=== PATIENT | male | born 1930 | race Caucasian/White ===

== ENCOUNTER 2018-04-14 18:45 | Inpatient (IN) | payer MEDICARE ==
[2018-04-14] MEDS ORDERED: Ondansetron PF 4 MG/2 ML Vial ONE (19:36)
--- NOTE | 2018-04-14 20:38 | CT ---
CT THORACIC SPINE 04/14/18 PROVIDED CLINICAL HISTORY: Back pain status post injury. FINDINGS: Advanced multilevel thoracic degenerative changes are seen. There is no evidence for fracture or trau matic subluxation. IMPRESSION: No evidence for fracture or traumatic subluxation. POS: [facility]
--- NOTE | 2018-04-14 20:42 | CT ---
CT BRAIN 04/14/18 PROVIDED CLINICAL HISTORY: Fall with head injury. FINDINGS: The ventricular system appears normal in size and morphology. There is no evidence for intracranial h emorrhage or mass effect. Left frontal scalp hematoma without evidence for fracture. IMPRESSION: No evidence for intracranial hemorrhage or skull fracture. POS: [facility]
[2018-04-14] MEDS ORDERED: Morphine 4 MG/ML VIAL ONE (20:46)
[2018-04-14 20:54] LABS: #Basophils 0.1 thou/uL (0.0-0.2); #Eosinphils 0.2 thou/uL (0.0-0.7); #Lymphocytes 1.5 thou/uL (1.20-3.40); #Neutrophils 13.1 thou/uL (1.40-6.50); %Basophils 0.5 % (0.0-1.0); %Lymphocytes 9.5 % (21.0-51.0); %Monocytes 6.1 % (0.0-10.0); Hemoglobin 12.5 g/dL (14.0-18.0); Mean Corpuscular HGB CONC 32.9 g/dL (32.0-36.0); Mean Corpuscular Hemoglobin 28.6 pg (27.0-31.0); Mean Corpuscular Volume 86.8 fL (78.0-98.0); Mean Platelet Volume 6.6 fL (7.4-10.4); Platelet Count 286 thou/uL (130-400); RBC Distribution Width 12.4 % (11.5-14.5); Red Blood Cell (RBC) Count 4.39 mill/uL (4.70-6.10); White Blood Cell (WBC) Count 15.8 thou/uL (4.8-10.8)
[2018-04-14 21:05] LABS: PTT 29.8 SEC (22.9-36.1); Prothrombin Time 12.9 SEC (12.0-14.7)
--- NOTE | 2018-04-14 21:19 | CT ---
CT CERVICAL SPINE 04/14/18 PROVIDED CLINICAL HISTORY: Cervical pain status post injury. 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 There is associated fracture thr ough the disc space at C5-6. Nondisplaced spinous process fractures are seen at C4, C5 and C6. Promin ent degenerative changes are seen at C3-4 with associated retrolisthesis of C3 on C4 and severe chron ic central canal stenosis. Additional multilevel cervical degenerative changes are seen. Vascular erick cifications are noted. IMPRESSION: Cervical spine fractures as described above. Findings communicated with Dr. Eduardo in the Emergency Department 8:10 p.m., 04/14/18. Code CR POS: [facility]
[2018-04-14 21:28] LABS: ALT (SGPT) 18 U/L (8-55); AST (SGOT) 30 U/L (5-34); Albumin 4.1 g/dL (3.4-4.8); Alkaline Phosphatase 71 U/L (40-150); Anion Gap 17 mmol/L (10-20); BUN (Urea Nitrogen) 21 mg/dL (8.4-25.7); Bilirubin, Total 0.4 mg/dL (0.2-1.2); Calc. Creatinine Clearance 0 mL/min (70-130); Calcium 9.3 mg/dL (7.8-10.44); Carbon Dioxide 22 mmol/L (23-31); Chloride 105 mmol/L (98-107); Estimated GFR-MDRD 43; Globulin 2.3 g/dL (2.4-3.5); Glucose 122 mg/dL (83-110); Potassium 4.1 mmol/L (3.5-5.1); Protein, Total 6.4 g/dL (5.8-8.1); Sodium 140 mmol/L (136-145)
[2018-04-14] MEDS ORDERED: Acetaminophen 1,000 MG in Premix Bag 1 BAG IVPB ONE (21:45)
[2018-04-14] MEDS ORDERED: Dextrose 50% Abboject 50 ML SYRINGE SLOW IVP PRN (22:06)
[2018-04-14] MEDS ORDERED: Ondansetron ODT 4 MG TAB PO PRN (22:06)
[2018-04-14] MEDS ORDERED: Dextrose 5% in Water 1,000 ML IV PRN (22:06)
[2018-04-14] MEDS ORDERED: Morphine 4 MG/ML VIAL SLOW IVP PRN (22:06)
[2018-04-14] MEDS ORDERED: traMADol HCl 50 MG TAB PO PRN (22:06)
[2018-04-14] MEDS ORDERED: Ondansetron PF 4 MG/2 ML Vial IVP PRN (22:06)
[2018-04-14] MEDS ORDERED: Cyclobenzaprine 10 MG TAB PO PRN (22:06)
[2018-04-14] MEDS ORDERED: Acetaminophen 1,000 MG in Premix Bag 1 BAG IVPB SCH (22:15)
[2018-04-14] MEDS ORDERED: Gabapentin 300 MG CAP PO SCH (22:15)
[2018-04-14] MEDS ORDERED: Famotidine 20 MG TAB PO SCH (22:15)
--- NOTE | 2018-04-14 22:49 | HP ---
REQUESTING PHYSICIAN: Dr. Elizalde. ATTENDING SURGEON: Dr. Gaona. CONSULTATION: Neurosurgery, Dr. Terrell. HISTORY OF PRESENT ILLNESS: The patient is an 88-year-old man who was walking on his porch when he missed a step, tripped and fell, hitting his face on the door frame and hyperextending his neck. The patient had immediate neck pain and burning sensation down both upper extremities, right greater than left. He was brought to the emergency department by ground EMS, where he underwent evaluation and examination and was noted to have multiple cervical spine vertebrae fractures and spinous process fractures, at which time, we were asked to admit the patient for neurosurgical consultation, possible MRI in the morning versus surgical intervention yet to be determined. The patient denied any loss of consciousness. He denies any syncopal symptoms before or after his fall. ALLERGIES: NONE. CURRENT MEDICATIONS: 1. Aspirin. 2. Plavix. 3. Keflex. 4. Mirtazapine. 5. Crestor. PAST MEDICAL HISTORY: Prostate cancer, history of repeated staphylococcal infections and the patient reports being on "lifetime Keflex." Coronary artery disease. PAST SURGICAL HISTORY: Cardiac stent and renal stents. SOCIAL HISTORY: The patient lives independently at home with his spouse. He denies drug, tobacco, or alcohol use. FAMILY MEDICAL HISTORY: High blood pressure. REVIEW OF SYSTEMS: Ten-point review of systems is negative as otherwise stated. PHYSICAL EXAMINATION: VITAL SIGNS: Blood pressure 141/87, heart rate 62, respirations 16, oxygen saturation 95% on room air, and temperature is 98.2. GENERAL: The patient is resting comfortably in bed. He is awake, alert, and oriented x3. [place] Coma Scale is 15. HEENT: The patient has contusion to his forehead and left cheek. Eyes, extraocular motion intact. PERRLA bilaterally. Ears are atraumatic without discharge. Nose, atraumatic without discharge. Oropharynx is clear. NECK: Immobilized in a prehospital collar which will be switched to an [place] collar. His trachea is midline. No JVD. CHEST: Clear to auscultation with good inspiratory and expiratory effort. HEART: Regular rate and rhythm. ABDOMEN: Soft, nontender with active bowel sounds. PELVIS: Stable. EXTREMITIES: Neurovascularly intact x4. The patient has equal motocross racer strength in upper extremities, but reports burning sensation right greater than left and more radial on both extremities. BACK: By report is nontender and atraumatic. LABORATORY FINDINGS: White blood cell count 15.8, hemoglobin 12.5, hematocrit 38.1, and platelets 286. Sodium 140, potassium 4.1, chloride 105, CO2 of 22, BUN 21, creatinine 1.52, and glucose 122. PT 12.9, PTT 30, and INR 1.0. RADIOGRAPHIC DATA: CT of the brain without contrast shows no evidence of intracranial hemorrhage or skull fracture. 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 There is associated fracture through the disk space at C5-CC6, nondisplaced spinous process fractures are seen at C4, C5, and C6. There is severe central canal stenosis at C3 and C4 and additional multilevel degenerative changes are seen. CT of the thoracic spine without contrast shows no evidence of fracture or traumatic subluxation. ASSESSMENT AND PLAN: 1. Status post ground-level fall. 2. C5-C6 fracture. 3. Multiple spinous process fractures of C-spine. 4. Chronic kidney disease. 5. History of coronary artery disease, on Plavix and aspirin. PLAN: Plan will be to admit the patient to the surgical floor. The current neurosurgical plan has not been finalized, we will wait Dr. Terrell's input. Precautionarily, we will make him n.p.o. after midnight. He will have pain control, pulmonary toilet, gastritis, and mechanical VTE prophylaxis. The evaluation, examination, laboratory, and radiographic findings will be discussed with Dr. Gaona after this dictation. Job ID: [id number]
[2018-04-14] MEDS ORDERED: Senokot 8.6 MG TAB PO PRN (23:26)
[2018-04-14] MEDS ORDERED: Mirtazapine 15 MG TAB PO SCH (23:30)
[2018-04-14] MEDS ORDERED: Rosuvastatin 10 MG TAB PO SCH (23:30)
[2018-04-14] MEDS ORDERED: Cephalexin 250 MG CAP PO SCH (23:30)
[2018-04-14] MEDS: Sodium Chloride 0.9% 1,000 ML IV SCH (23:36)
[2018-04-14] MEDS ORDERED: Acetaminophen 325 MG TAB PO SCH (23:59)
[2018-04-15 01:59] VITALS: BMI 21.9
[2018-04-15 02:22] LABS: #Basophils 0.1 thou/uL (0.0-0.2); #Eosinphils 0.1 thou/uL (0.0-0.7); #Lymphocytes 1.7 thou/uL (1.20-3.40); #Neutrophils 8.4 thou/uL (1.40-6.50); %Basophils 0.5 % (0.0-1.0); %Eosinophils 0.6 % (0.0-10.0); %Lymphocytes 15.2 % (21.0-51.0); %Monocytes 8.7 % (0.0-10.0); %Neutrophils 75.1 % (42.0-75.0); Hemoglobin 11.7 g/dL (14.0-18.0); Mean Corpuscular HGB CONC 33.8 g/dL (32.0-36.0); Mean Corpuscular Hemoglobin 29.2 pg (27.0-31.0); Mean Corpuscular Volume 86.5 fL (78.0-98.0); Mean Platelet Volume 6.6 fL (7.4-10.4); Platelet Count 244 thou/uL (130-400); RBC Distribution Width 12.3 % (11.5-14.5); Red Blood Cell (RBC) Count 4.01 mill/uL (4.70-6.10); White Blood Cell (WBC) Count 11.1 thou/uL (4.8-10.8)
[2018-04-15 03:07] LABS: Anion Gap 13 mmol/L (10-20); BUN (Urea Nitrogen) 22 mg/dL (8.4-25.7); Calc. Creatinine Clearance 25 mL/min (70-130); Calcium 8.9 mg/dL (7.8-10.44); Carbon Dioxide 25 mmol/L (23-31); Chloride 104 mmol/L (98-107); Estimated GFR-MDRD 39; Glucose 151 mg/dL (83-110); Magnesium 2.2 mg/dL (1.6-2.6); Phosphorus 3.9 mg/dL (2.3-4.7); Potassium 4.7 mmol/L (3.5-5.1); Sodium 137 mmol/L (136-145); Troponin I 0.038 ng/mL (< 0.028)
[2018-04-15 03:12] LABS: CKMB 11.6 ng/mL (0-6.6)
--- NOTE | 2018-04-15 03:18 | HP ---
NEUROSURGICAL HISTORY AND PHYSICAL HISTORY OF PRESENT ILLNESS: Mr. Altamirano is an 88-year-old male who reports that this evening he was walking on his porch and tripped over a piece of a plank that was sticking out. He fell forward hitting his head on the doorjamb and snapping his neck back. The patient denies any loss of consciousness. He reports neck pain posteriorly, pain between his shoulder blades, and pain in both of his hands, specifically his thumb and pointer finger. The patient denies any numbness or tingling. He is moving all 4 extremities well and has good strength. REVIEW OF SYSTEMS: A 10-point review of systems has been completed and is negative other than stated in the above HPI. CURRENT MEDICATIONS: 1. Aspirin 81 mg. 2. Clopidogrel 75 mg. 3. Cephalexin 500 mg. 4. Mirtazapine 7.5 mg. 5. Crestor 10 mg. ALLERGIES: NO KNOWN DRUG ALLERGIES. PAST MEDICAL HISTORY: Prostate cancer, stents. PAST SURGICAL HISTORY: Cardiac stents, renal stents. SOCIAL HISTORY: The patient states that he drinks socially. Denies drug use or smoking. Lives with his . PHYSICAL EXAMINATION: VITAL SIGNS: Heart rate 65, temperature 98.2, oxygen 95% on room air. CONSTITUTION: The patient is alert and oriented to person, place, and time. He is resting in the ER room with a C-collar on. He does not appear to be in any visible distress at this time. HEENT: Head is normocephalic. He has a small hematoma on the left forehead as well as an abrasion/skin laceration on his left cheek and some erythema above the left eye. Pupils are equal, round, and reactive to light. Extraocular movements are intact. Hearing is intact. Moist mucous membranes. NECK: Posterior neck pain along the 5th spinous process, approximately C4, C5, and C6, nontender in upper thoracic spine. RESPIRATIONS: Normal work of breathing on room air. CARDIOVASCULAR: Regular rate and rhythm. EXTREMITIES: The patient is moving all 4 extremities well. 5/5 strength in deltoids, biceps, triceps, pull through hooker strength, hip flexion, knee flexion, knee extension, dorsiflexion, plantar flexion. NEUROLOGIC: The patient is awake, alert, and oriented x3. Normal attention. Normal fund of knowledge. Speech is spontaneous and fluent. Short and long- term memory are intact. Cranial nerves 2 through 12 are intact. No motor or sensory deficits noted. IMAGING: CT of cervical spine shows a fracture between the C5-C6 vertebra where the patient's C-spine has been auto fused. There is a fracture of the C4, C5, and C6 spinous processes, nondisplaced. ASSESSMENT AND PLAN: Mr. Altamirano has cervical spinous process fractures as well as cervical body fractures. We will advise that he wear an [place] C-collar at all times and he will need a [place] collar for showers. At this time, he is neurologically stable and the fractures do not appear to be unstable. Pt. should wear Collar at all times and follow up with our office on an out pt. bases. Job ID: [id number] [facility]
[2018-04-15] MEDS: Acetaminophen 325 MG TAB PO SCH ×4 (06:03→23:59)
[2018-04-15] MEDS: traMADol HCl 50 MG TAB PO PRN ×2 (07:15→19:23)
[2018-04-15] MEDS: Calcium Carbonate + Vit D 1 TAB PO SCH (08:15)
[2018-04-15] MEDS: Gabapentin 100 MG CAP PO SCH ×2 (08:16→21:05)
[2018-04-15] MEDS: Cephalexin 250 MG CAP PO SCH ×4 (08:16→21:05)
--- NOTE | 2018-04-15 08:18 | RAD ---
SINGLE VIEW OF THE CHEST: COMPARISON: None. HISTORY: Bradycardia and hypotension. FINDINGS: A single view of the chest shows a normal-size cardiomediastinal silhouette with atherosclerotic calc ifications in the aorta. There is no evidence of consolidation, mass, or pleural effusion. Degenera tive change are seen in the spine. IMPRESSION: No evidence of acute cardiopulmonary disease. POS: [facility]
[2018-04-15] MEDS ORDERED: Gabapentin 300 MG CAP PO SCH (09:00)
[2018-04-15] MEDS ORDERED: Famotidine 20 MG TAB PO SCH (09:00)
[2018-04-15 09:28] LABS: Cardiac Risk 2.3 (Less than 4.5)
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
[2018-04-15] MEDS: Sodium Chloride 0.9% 1,000 ML IV SCH (11:34)
--- NOTE | 2018-04-15 12:45 | PRG ---
DATE OF SERVICE: 04/15/2018 SUBJECTIVE: The patient is on hospital day #2. He is currently on the IMCU. Last night, he had an episode of significant bradycardia. He never had loss of consciousness, chest pain, shortness of breath, but it was noted that his heart rate dropped as low as to 30s and stayed there for a significant amount of time again not becoming symptomatic, but he was moved from the surgical floor to the IMCU this morning. He underwent echocardiogram and is awaiting Cardiology consult for likely pacemaker placement. His EKG last night at the time of his event showed significant sinus arrhythmia, but had a known first-degree heart block, but no second or third degree heart block was noted. Otherwise, the patient is doing well. He has been fitted with a [place] J collar for his cervical fracture and it will be treated nonoperatively per Dr. Terrell. PHYSICAL EXAMINATION: VITAL SIGNS: Temperature is 99.0, heart rate 43, blood pressure 105/38, respirations 16, oxygen saturation is 100% on room air. GENERAL: The patient is resting comfortably in bed. He is awake, alert, conversant, and appropriate. It is noted that when the patient does fall asleep, his heart rate will slow down into the 30s, but while conversing, he stays around a heart rate of 50 to 60. HEENT: Unremarkable. The patient is wearing a [place] J collar. LUNGS: Clear to auscultation with good inspiratory and expiratory effort. HEART: Regular and bradycardic. ABDOMEN: Soft, flat, nontender with active bowel sounds. EXTREMITIES: Neurovascularly intact x4. The patient reports his upper extremity radiculopathy is improving, still right greater than left, but he states that it is improving. LABORATORY FINDINGS: White blood cell count 11.1, hemoglobin 11.7, hematocrit 34.6, platelets 244. Sodium 137, potassium 4.7, chloride 104, CO2 of 25, BUN 22, creatinine 1.67, glucose 151, phosphorus 3.9, magnesium 2.2. Troponin initial was 0.038 and repeat was 0.040. BNP 378. RADIOGRAPHS: AP chest x-ray shows no evidence of acute cardiopulmonary disease. ASSESSMENT: 1. Status post ground level fall. 2. C5-C6 fracture. 3. Multiple spinous process fractures. 4. Chronic kidney disease. 5. Bradycardia. PLAN: Plan will be to continue monitoring on the [facility] due to the patient's long-term Keflex use. Dr. Kent was consulted prior to attempting pacemaker placement. Once Dr. Kent evaluates the patient, Dr. Ahumada will decide the timing of his pacemaker placement. The evaluation, examination, laboratory, and radiographic findings were done this morning during rounds with Dr. Golden. Job ID: [id number]
--- NOTE | 2018-04-15 16:59 | EKG ---
Test Reason : Blood Pressure : / mmHG Vent. Rate : 055 BPM Atrial Rate : 055 BPM P-R Int : 228 ms QRS Dur : 072 ms QT Int : 500 ms P-R-T Axes : 073 049 041 degrees QTc Int : 478 ms Sinus bradycardia with marked sinus arrhythmia with 1st degree A-V block and sinus pause No previous ECGs available Confirmed by DR. Basilia PATEL (3) on 04/15/2018 4:58:57 PM Referred By: CELSO Confirmed By:DR. Basilia PATEL
[2018-04-15] MEDS: Rosuvastatin 10 MG TAB PO SCH (21:05)
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
--- NOTE | 2018-04-15 22:25 | CON ---
DATE OF CONSULTATION: REASON FOR CONSULTATION: Concerns regarding placement of pacemaker with a past history of staphylococcal infections. HISTORY OF PRESENT ILLNESS: An 88-year-old, who has a history of prostate cancer and qagan tayagungin right hip joint infection by Staphylococcus aureus and then subsequently what the family members described as a paraspinal Staph aureus infection, treated for a protracted time with IV antimicrobial therapy. The patient now comes in after having tripped and fallen in his property. He had a few cervical spine fractures, spinous processes fractures. He was evaluated by the by Neurosurgery and they recommended management with a collar 24 hours a day. He also was noted to have bradycardia needing a pacemaker placement and then there was concern regarding the history of staphylococcal infections. Right now, he has no active inflammatory lesions noticeable. Denies any headaches. Little pain in the malar region where he had the laceration from the fall and some neck pain. No shortness of breath or chest pain. No abdominal pain. Urinating spontaneously in the toilet. PAST MEDICAL HISTORY: Includes prostate cancer, staphylococcal infections in the hip joint, status post washout in the past and protracted antimicrobial therapy as well as a back soft tissue infection due to Staph aureus as well reportedly. He has been taking Keflex for the past 8 years for that indication. SURGICAL HISTORY: Cardiac stent and renal stents. SOCIAL HISTORY: Lives with spouse at home. Never smoker. FAMILY HISTORY: Hypertension. CURRENT MEDICATIONS: 1. Cephalexin. 2. Dextrose. 3. Pepcid. 4. Apresoline. 5. Ondansetron. 6. Tramadol. PHYSICAL EXAMINATION: VITAL SIGNS: T-max 99. Other vital signs remarkable for pulse 66, respirations 10, O2 saturation 89% to 100%. GENERAL: The patient has areas of bruising on the left side of his face with some laceration. Peripheral IV access and he is voiding spontaneously. HEENT: Ocular movements conjugate. Oral cavity is normal except for missing teeth. LUNGS: Clear. HEART: S1, S2. Regular rate. ABDOMEN: Soft, not distended. EXTREMITIES: Moving extremities on command. LABORATORY DATA: White cell count is 15,011, platelets 244, hemoglobin 11, neutrophils 75%. INR 1.0. Chemistry with a creatinine of 1.52, which is above his baseline from 2013 of 0.7. Liver profile normal. Troponin 0.038. IMAGING STUDIES: Includes a chest x-ray with no evidence of acute cardiopulmonary disease. ASSESSMENT: History of staphylococcal infections in the long distant past for some reason on chronic Keflex suppression. Typically, any antimicrobial suppressive therapy is indicated only in the situation of devices that might be infected, colonized and cannot be removed such as joints, pacemaker, artificial heart valves, and so on. In his case, he had soft tissue and qagan tayagungin joint infections. After so many years, I would probably recommend discontinuation of Keflex; however, the family member seems to be very attached to that idea. Regarding his surgical placement of pacemaker, I do not think there is any inordinate risk and I would just follow the same procedure with [place] and the preoperative antimicrobial prophylaxis for the device placement. Job ID: [id number] [facility]
[2018-04-15] MEDS ORDERED: Sodium Chloride 0.9% 1,000 ML IV SCH (23:05)
[2018-04-16] MEDS: Sodium Chloride 0.9% 1,000 ML IV SCH (03:21)
[2018-04-16] MEDS: Acetaminophen 325 MG TAB PO SCH ×4 (05:17→23:59)
[2018-04-16] MEDS: Cephalexin 250 MG CAP PO SCH ×3 (08:04→20:38)
[2018-04-16] MEDS: hydrALAZINE 20 MG/ML VIAL SLOW IVP PRN (08:04)
[2018-04-16] MEDS: Gabapentin 100 MG CAP PO SCH ×2 (08:24→20:38)
[2018-04-16] MEDS: Calcium Carbonate + Vit D 1 TAB PO SCH (08:24)
[2018-04-16] MEDS: Famotidine 20 MG TAB PO SCH (08:24)
[2018-04-16] MEDS: Bacitracin Zinc Ointment 30 gm TUBE TOP SCH (10:50)
[2018-04-16] MEDS ORDERED: Furosemide 20 MG/2 ML VIAL SLOW IVP SCH (11:00)
[2018-04-16] MEDS ORDERED: Furosemide 40 MG/4 ML VIAL ONE (11:42)
--- NOTE | 2018-04-16 12:05 | RAD ---
FRONTAL RADIOGRPAH CHEST: DATE: 04/16/2018. COMPARISON: 04/15/2018. HISTORY: Possible aspiration. FINDINGS: No pneumothorax is seen. There is mild elevation of the left hemidiaphragm. The right lung appears clear. There is mild patchy opacity in the medial left base which suggests volume loss. No lobar consolidat ion or alveolar edema. IMPRESSION: Minimal streaky opacity in the medial left base suggesting volume loss. Mild infiltrate cannot be ex cluded. There is no focal consolidation seen. POS: [facility]
--- NOTE | 2018-04-16 12:30 | PRG ---
DATE OF SERVICE: 04/16/2018 SUBJECTIVE: The patient is hospital day 3. He remains on the IMCU. He was scheduled to undergo his pacemaker placement today, but is having difficulty lying flat, so Dr. Ahumada has postponed this for now. The patient was recently admitted to the facility for a C5-C6 fracture, which is going to be treated nonoperatively and the patient was due to be fitted with a [place] J collar and little healthier collars today. The patient had no issues overnight and is likely going to be moved to the telemetry unit today. OBJECTIVE: VITAL SIGNS: Temperature is 98.5, heart rate is 79, blood pressure 173/80, respirations 17, and oxygen saturation is 96% on room air. GENERAL: The patient is resting comfortably in bed. He is awake, alert, and oriented, conversant and appropriate. HEENT: Unremarkable. NECK: Immobilized in a [place] J collar and again is going to be exchanged for a better fitting one today. LUNGS: Clear to auscultation with good inspiratory and expiratory effort. HEART: Regular rate and rhythm. ABDOMEN: Soft, flat, nontender with active bowel sounds. EXTREMITIES: Neurovascularly intact x4. DIAGNOSTIC DATA: There are no labs or radiographs to review this morning. ASSESSMENT: 1. Status post fall. 2. Fracture of C5-C6 and multiple spinous process fractures of the C-spine. 3. Bradycardia. PLAN: Plan will be to continue supportive care. We will give him 20 mg of Lasix this morning if we can assist with his orthopnea. Saline lock his fluids. Start a heart-healthy diet. Continue Physical and Occupational Therapy and again transferred to the telemetry unit. Job ID: [id number]
[2018-04-16] MEDS: Mirtazapine 15 MG TAB PO SCH (20:38)
[2018-04-16] MEDS: traMADol HCl 50 MG TAB PO PRN (20:38)
[2018-04-16] MEDS: Rosuvastatin 10 MG TAB PO SCH (20:38)
[2018-04-17 05:01] LABS: #Eosinphils 0.6 thou/uL (0.0-0.7); #Lymphocytes 1.8 thou/uL (1.20-3.40); #Neutrophils 7.4 thou/uL (1.40-6.50); %Basophils 0.2 % (0.0-1.0); %Eosinophils 5.5 % (0.0-10.0); %Lymphocytes 16.6 % (21.0-51.0); %Monocytes 9.4 % (0.0-10.0); %Neutrophils 68.2 % (42.0-75.0); Hemoglobin 12.3 g/dL (14.0-18.0); Mean Corpuscular HGB CONC 32.9 g/dL (32.0-36.0); Mean Corpuscular Hemoglobin 28.6 pg (27.0-31.0); Mean Platelet Volume 6.7 fL (7.4-10.4); Platelet Count 250 thou/uL (130-400); RBC Distribution Width 12.4 % (11.5-14.5); Red Blood Cell (RBC) Count 4.29 mill/uL (4.70-6.10); White Blood Cell (WBC) Count 10.8 thou/uL (4.8-10.8)
[2018-04-17 05:21] LABS: Anion Gap 11 mmol/L (10-20); BUN (Urea Nitrogen) 16 mg/dL (8.4-25.7); Calc. Creatinine Clearance 30 mL/min (70-130); Calcium 8.4 mg/dL (7.8-10.44); Carbon Dioxide 27 mmol/L (23-31); Chloride 106 mmol/L (98-107); Estimated GFR-MDRD 46; Glucose 91 mg/dL (83-110); Magnesium 2.2 mg/dL (1.6-2.6); Phosphorus 2.5 mg/dL (2.3-4.7); Potassium 3.7 mmol/L (3.5-5.1); Sodium 140 mmol/L (136-145)
[2018-04-17] MEDS: Acetaminophen 325 MG TAB PO SCH ×4 (05:40→23:32)
[2018-04-17] MEDS: Famotidine 20 MG TAB PO SCH (08:03)
[2018-04-17] MEDS: Cephalexin 250 MG CAP PO SCH ×3 (08:03→20:36)
[2018-04-17] MEDS: Gabapentin 100 MG CAP PO SCH ×2 (08:03→20:37)
[2018-04-17] MEDS: Calcium Carbonate + Vit D 1 TAB PO SCH (08:03)
[2018-04-17] MEDS: Polyethylene Glycol 3350 17 GM Packet PO SCH (08:11)
[2018-04-17] MEDS: Senokot S 8.6-50 MG TAB PO SCH ×2 (08:11→20:33)
--- NOTE | 2018-04-17 09:18 | RAD ---
PORTABLE CHEST: HISTORY: Dyspnea. CCU followup. COMPARISON: 04/16/2018. FINDINGS: Streaky atelectasis and/or infiltrate in the left lung base with slight elevation of the left hemidia phragm. Findings are stable. Lungs are otherwise clear and unchanged. Heart and mediastinum unrema rkable. IMPRESSION: Evidence of left basilar atelectasis, stable from prior exam. POS: GARO
[2018-04-17] MEDS: Bacitracin Zinc Ointment 30 gm TUBE TOP SCH (11:04)
--- NOTE | 2018-04-17 12:55 | PRG ---
DATE OF SERVICE: 04/17/2018 SUBJECTIVE: The patient remains on the IMCU. He is currently awaiting a telemetry bed. He is hospital day 4, status post a fall, in which he sustained a C5-C6 fracture, and while here in the hospital, he had episode of severe bradycardia. After evaluation by Cardiology, it was determined that the patient would require pacemaker. The patient is currently planned to have his pacemaker done tomorrow, but it may be done on Wednesday depending on Dr. Ahumada's schedule. Otherwise, the patient is doing well. He is tolerating a diet. His pain is controlled. He was fitted with a [place] J collar yesterday that is more appropriate for his size. The patient has not had any more bradycardia, but actually had two episodes of tachycardia today when he was attempting to have a bowel movement. He has been in normal sinus rhythm and normal rate since then, and the patient was not symptomatic when he had his elevated heart rate. PHYSICAL EXAMINATION: VITAL SIGNS: Temperature is 98.9, heart rate 88, blood pressure 138/90, respirations 15, and oxygen saturation 95% on room air. GENERAL: The patient is resting comfortably, sitting in a chair beside his bed. He is awake, alert, and oriented x3. [place] Coma Scale is 15. HEENT: Unremarkable. NECK: [place] J collar does appear to be better fitted than the one he had yesterday. LUNGS: Clear to auscultation with good inspiratory and expiratory effort. HEART: Regular rate and rhythm. ABDOMEN: Soft, flat, and nontender with active bowel sounds. EXTREMITIES: Neurovascularly intact x4. ASSESSMENT: 1. Status post fall. 2. Fracture of C5, C6, and multiple spinous process fractures of the C-spine. 3. Bradycardia, stable. PLAN: Plan will be to continue supportive care, physical and occupational therapy, and await pacemaker placement decision. Job ID: [id number]
[2018-04-17] MEDS: hydrALAZINE 20 MG/ML VIAL SLOW IVP PRN (17:43)
[2018-04-17] MEDS: Rosuvastatin 10 MG TAB PO SCH (20:33)
[2018-04-17] MEDS ORDERED: Guaifenesin DM 100-10/5 ML UDCUP PO PRN (23:03)
[2018-04-18] MEDS: Acetaminophen 325 MG TAB PO SCH ×3 (06:11→18:12)
[2018-04-18] MEDS: Polyethylene Glycol 3350 17 GM Packet PO SCH (08:48)
[2018-04-18] MEDS: Calcium Carbonate + Vit D 1 TAB PO SCH (08:49)
[2018-04-18] MEDS: Cephalexin 250 MG CAP PO SCH ×3 (08:49→21:19)
[2018-04-18] MEDS: Gabapentin 100 MG CAP PO SCH ×2 (08:49→21:19)
[2018-04-18] MEDS: Famotidine 20 MG TAB PO SCH (08:49)
[2018-04-18] MEDS: Senokot S 8.6-50 MG TAB PO SCH ×2 (08:49→21:18)
[2018-04-18] MEDS: traMADol HCl 50 MG TAB PO PRN ×2 (08:49→15:01)
[2018-04-18] MEDS: Bacitracin Zinc Ointment 30 gm TUBE TOP SCH (08:50)
--- NOTE | 2018-04-18 14:19 | PRG ---
DATE OF SERVICE: 04/18/2018 SUBJECTIVE: Mr. Altamirano is an 88-year-old man, who suffered a cervical spine injury following a ground level fall on 04/14/2018. The cervical spine injury is being treated nonoperatively with a C-collar. In the interim, the patient developed profound bradycardia secondary to sick sinus syndrome. He has been evaluated by Cardiology and is awaiting pacemaker placement. He developed acute onset atrial fibrillation with rapid ventricular response, which has since converted to sinus rhythm within the last 24 hours. Currently, the patient denies any dyspnea or syncope. Pain is adequately controlled on oral analgesics. PHYSICAL EXAMINATION: VITAL SIGNS: This morning include blood pressure 164/82, pulse 79, respiratory rate is 18, temperature 99 degrees Fahrenheit, and oxygen saturation 94% on room air. HEENT: Reveals pupils are equal, round, and reactive to light and accommodation. NECK: He has no jugular venous distention noted. HEART: Reveals regular rate and rhythm. No murmurs or gallops auscultated. LUNGS: Clear to auscultation bilaterally. Breathing, regular and nonlabored. ABDOMEN: Soft, nontender, and nondistended. EXTREMITIES: Reveal 2 +radial and pedal pulses bilaterally. No ankle edema is present. NEUROLOGIC: Reveals no focal deficits present. IMPRESSION: 1. Post injury day #4 status post ground level fall with C5-C6 fractures. 2. Acute atrial fibrillation with rapid ventricular response, resolved. PLAN: 1. Continue with physical and occupational therapy to increase activity as tolerated. 2. The patient will be transferred to [facility] Bed once the pacemaker insertion has been accomplished per Cardiology. Job ID: [id number]
--- NOTE | 2018-04-18 17:07 | EKG ---
Test Reason : Blood Pressure : / mmHG Vent. Rate : 107 BPM Atrial Rate : 156 BPM P-R Int : 000 ms QRS Dur : 074 ms QT Int : 344 ms P-R-T Axes : 000 018 042 degrees QTc Int : 459 ms Atrial fibrillation with rapid ventricular response Nonspecific ST abnormality Abnormal ECG Confirmed by DR. Basilia PATEL ([id number]) on 04/18/2018 5:07:02 PM Referred By: NUVIA Confirmed By:DR. Basilia PATEL
[2018-04-18] MEDS: Mirtazapine 15 MG TAB PO SCH (21:18)
[2018-04-18] MEDS: Rosuvastatin 10 MG TAB PO SCH (21:19)
[2018-04-19] MEDS: Acetaminophen 325 MG TAB PO SCH ×4 (00:34→17:18)
[2018-04-19] MEDS: traMADol HCl 50 MG TAB PO PRN ×2 (00:35→09:12)
[2018-04-19] MEDS: Cephalexin 250 MG CAP PO SCH ×3 (09:10→20:44)
[2018-04-19] MEDS: Calcium Carbonate + Vit D 1 TAB PO SCH (09:10)
[2018-04-19] MEDS: Polyethylene Glycol 3350 17 GM Packet PO SCH (09:10)
[2018-04-19] MEDS: Senokot S 8.6-50 MG TAB PO SCH ×2 (09:10→20:45)
[2018-04-19] MEDS: Famotidine 20 MG TAB PO SCH (09:10)
[2018-04-19] MEDS: Amlodipine 10 MG TAB PO SCH (09:10)
[2018-04-19] MEDS: Bacitracin Zinc Ointment 30 gm TUBE TOP SCH (09:11)
[2018-04-19] MEDS: Gabapentin 100 MG CAP PO SCH ×2 (09:11→20:45)
--- NOTE | 2018-04-19 10:54 | PRG ---
DATE OF SERVICE: 04/19/2018 SUBJECTIVE: I am seeing the patient today for Dr. Golden, who is out of town. He is pending pacemaker placement. He is having some difficulty swallowing, particularly at night, which I think is causing some aspiration. OBJECTIVE: VITAL SIGNS: Temperature is 97.5, pulse , respirations 18, O2 saturation 96% on room air, and blood pressure 195/105. HEENT: Unremarkable. NECK: Without adenopathy or JVD. LUNGS: Coarse breath sounds. CARDIAC: S1 and S2 regular. ABDOMEN: Soft. EXTREMITIES: No edema. LABORATORY DATA: No labs were done today. ASSESSMENT: 1. The patient is post ground level fall with C5-C6 fracture. 2. Atrial fibrillation with rapid ventricular response. 3. Sick sinus syndrome. 4. Possible aspiration. PLAN: I will switch him to nebs with EzPAP to see if that will help clear his secretions better. I think he will probably be ready to lay down for the pacemaker by tomorrow. Job ID: [id number]
--- NOTE | 2018-04-19 14:56 | PRG ---
DATE OF SERVICE: 04/19/2018 SUBJECTIVE: This is an 88-year-old male, status post a ground level fall, resulting in C-spine fracture. His C-spine injury is being treated nonoperatively with a C-collar. During this hospitalization, the patient has been diagnosed with sick sinus syndrome. He had significant bradycardia as well as an episode of atrial fibrillation, RVR. Cardiology has been consulted and planned for permanent pacemaker evaluation. However, the patient was demonstrating signs of respiratory distress on the initial date that the procedure was scheduled. This morning, however, he states his pain has been well controlled. He reports that his breathing is stable. His O2 saturations are adequate on room air. Of note, the patient has been significantly hypertensive for the last 48 hours. OBJECTIVE: VITAL SIGNS: Temperature 97.5, pulse 79, respirations 18, O2 saturations 97% on room air, and blood pressure 195/105. GENERAL: Elderly appearing male, in no acute distress, resting in bed. PULMONARY: Normal work of breathing. Symmetric rise. IS approximately 1250 mL. Lungs with coarse rhonchi that improved with coughing bilaterally. CARDIOVASCULAR: Regular rate and rhythm. No obvious murmurs, rubs, or gallops. GI: Abdomen is soft, nontender, nondistended. MUSCULOSKELETAL: Moves all extremities x4. NEUROLOGIC: No focal deficit is noted. LABORATORY FINDINGS: No new laboratory findings. ASSESSMENT: 1. Status post ground level fall. 2. C5-C6 fracture. 3. Multiple cervical spinous process fractures. 4. Acute traumatic pain. 5. Sick sinus syndrome. 6. Hypertension. 7. Remote history of methicillin-resistant Staphylococcus aureus infection. PLAN: I have discussed the case with Cardiology, who plans for likely permanent pacemaker placement tomorrow, provided that the patient's respiratory status stay stable. Nebs have been ordered and Pulmonary is following. Importance of incentive spirometry, pulmonary toileting, and mobility was discussed with the patient. C-collar at all times per Neurosurgery recommendations. Pain management as ordered. Eventual disposition for the patient to [facility] once he has been cleared by Cardiology. The patient does have orders for telemetry floor once a bed is available. Continue physical therapy and occupational therapy. Plan of care was discussed with the patient and family at bedside and all questions were answered at the time of this dictation. The patient was discussed with attending. Job ID: [id number]
[2018-04-19] MEDS: Rosuvastatin 10 MG TAB PO SCH (20:44)
[2018-04-20] MEDS: Acetaminophen 325 MG TAB PO SCH ×4 (00:37→17:34)
[2018-04-20 04:48] LABS: #Eosinphils 0.7 thou/uL (0.0-0.7); #Lymphocytes 2.2 thou/uL (1.20-3.40); #Neutrophils 5.1 thou/uL (1.40-6.50); %Basophils 0.5 % (0.0-1.0); %Eosinophils 7.7 % (0.0-10.0); %Lymphocytes 24.8 % (21.0-51.0); %Monocytes 10.5 % (0.0-10.0); %Neutrophils 56.5 % (42.0-75.0); Hemoglobin 12.1 g/dL (14.0-18.0); Mean Corpuscular Hemoglobin 28.6 pg (27.0-31.0); Mean Corpuscular Volume 86.6 fL (78.0-98.0); Mean Platelet Volume 6.3 fL (7.4-10.4); Platelet Count 313 thou/uL (130-400); RBC Distribution Width 12.4 % (11.5-14.5); Red Blood Cell (RBC) Count 4.22 mill/uL (4.70-6.10); White Blood Cell (WBC) Count 9.1 thou/uL (4.8-10.8)
[2018-04-20 05:12] LABS: Anion Gap 12 mmol/L (10-20); BUN (Urea Nitrogen) 15 mg/dL (8.4-25.7); Calc. Creatinine Clearance 35 mL/min (70-130); Calcium 9.1 mg/dL (7.8-10.44); Carbon Dioxide 24 mmol/L (23-31); Chloride 107 mmol/L (98-107); Estimated GFR-MDRD 59; Glucose 101 mg/dL (83-110); Magnesium 2.4 mg/dL (1.6-2.6); Phosphorus 2.7 mg/dL (2.3-4.7); Potassium 4.5 mmol/L (3.5-5.1); Sodium 138 mmol/L (136-145)
[2018-04-20] MEDS ORDERED: Fentanyl 100 MCG/2 ML VIAL ONE (07:55)
[2018-04-20] MEDS ORDERED: Heparin 0 ML ONE (07:55)
[2018-04-20] MEDS ORDERED: Midazolam HCl 2 mg/2 ml Vial ONE (07:55)
[2018-04-20] MEDS ORDERED: CEFAZOLIN 2 GM/50 ML BAG ONE ×2 (07:56→07:57)
[2018-04-20] MEDS ORDERED: Lidocaine 1% (PF) 30 ML VIAL ONE (07:56)
[2018-04-20] MEDS ORDERED: Gentamicin 80 MG/2 ML VIAL ONE (08:05)
[2018-04-20] MEDS ORDERED: CEFAZOLIN 1 GM VIAL ONE (08:05)
[2018-04-20] MEDS: Polyethylene Glycol 3350 17 GM Packet PO SCH (08:15)
[2018-04-20] MEDS: Cephalexin 250 MG CAP PO SCH ×3 (08:15→20:32)
[2018-04-20] MEDS: Calcium Carbonate + Vit D 1 TAB PO SCH (08:15)
[2018-04-20] MEDS: Bacitracin Zinc Ointment 30 gm TUBE TOP SCH (08:15)
[2018-04-20] MEDS: Senokot S 8.6-50 MG TAB PO SCH ×2 (08:15→20:32)
[2018-04-20] MEDS: Famotidine 20 MG TAB PO SCH (08:15)
[2018-04-20] MEDS: Gabapentin 100 MG CAP PO SCH ×2 (08:15→20:33)
[2018-04-20] MEDS: Amlodipine 10 MG TAB PO SCH (08:15)
[2018-04-20] MEDS ORDERED: Furosemide 40 MG/4 ML VIAL ONE (09:48)
[2018-04-20] MEDS ORDERED: Metoprolol Tartrate 5 MG/5 ML VIAL ONE (09:55)
[2018-04-20] MEDS: traMADol HCl 50 MG TAB PO PRN (10:17)
[2018-04-20] MEDS ORDERED: Acetaminophen/Codeine 30-300mg Tablet PO PRN (10:37)
--- NOTE | 2018-04-20 12:03 | RAD ---
SINGLE VIEW OF THE CHEST: Comparison: 04-17-18 History: Status post pacemaker device placement. FINDINGS: Single view of the chest shows a normal sized cardiomediastinal silhouette with atherosclerotic calci fications in the aorta. A left subclavian pacemaker is seen with its leads in the right atrium and ve ntricle. No pneumothorax is seen. There is no evidence of consolidation, mass, or pleural effusion. D egenerative changes are seen in the spine. IMPRESSION: Status post pacemaker placement without evidence of complication. POS: TPC
--- NOTE | 2018-04-20 15:09 | PRG ---
DATE OF SERVICE: 04/20/2018 SUBJECTIVE: This is an 88-year-old male patient status post mechanical fall from standing resulting in C5-C6 fractures as well as C4 through C6 spinous process fractures. His C-spine injuries are being treated nonoperatively with a C- collar. During this hospitalization, the patient has been diagnosed with sick sinus syndrome as well. He has had significant bradycardia as well as episodes of AFib with RVR. Cardiology was consulted and the patient was taken for a pacemaker placement today. He was seen today by the Trauma team after his pacemaker placement and reported no pain or discomfort. He reported he was feeling well. Otherwise, tolerating a diet. Using incentive spirometer. He reports coughing with some gargling. Speech is seeing the patient He was on room air at the time of evaluation and was maintaining oxygen saturations. OBJECTIVE: VITAL SIGNS: Temperature 98.4, pulse 70, respirations 14, saturating 99% on room air, and blood pressure 164/84. GENERAL: No acute signs of distress, resting in bed. PULMONARY: No increased work of breathing. Equal chest rise and fall. Normal respiratory rate. Occasional gargling in posterior throat with minimal coarse rhonchi that improves easily with coughing. Cardiovascular: Regular rate and rhythm. No obvious murmurs, gallops, or rubs. GI: Abdomen is soft, nontender, and nondistended. MUSCULOSKELETAL: Moves all extremities spontaneously. NEUROLOGIC: GCS is 15. No gross focal neurological deficits. LABORATORY FINDINGS: White blood cell count 9.1, hemoglobin 12.1, hematocrit 36.5, and platelets 313. Sodium 138, potassium 4.5, chloride 107, carbon dioxide 24, BUN 15, creatinine 1.71, and glucose is 101. ASSESSMENT: 1. Status post mechanical fall from standing. 2. C5-C6 fractures. 3. C4 through C6 spinous process fractures. 4. Acute traumatic pain. 5. Sick sinus syndrome. 6. Hypertension, improved. 7. Remote history of methicillin-resistant Staphylococcus aureus infection. PLAN: The patient was taken today for pacemaker by Cardiology and the patient appears to be doing well after the procedure. Blood pressure has also improved from yesterday, as nursing is giving p.r.n. hydralazine. Continue to encourage incentive spirometry and pulmonary hygiene. Continue to mobilize the patient. Continue to maintain C-collar at all times per Neurosurgeries recommendation. Continue pain management as ordered. The patient is ready to be transferred to the Telemetry floor when a bed is available. Physical Therapy and Occupational Therapy have been ordered and continue to see the patient. He can continue his current nectar thick diet. His family is at the bedside and will update on his condition and all questions were answered at the time of the visit. This patient was discussed with the attending. Job ID: [id number] MTDD
[2018-04-20] MEDS: Rosuvastatin 10 MG TAB PO SCH (20:32)
[2018-04-20] MEDS: Mirtazapine 15 MG TAB PO SCH (20:33)
[2018-04-20] MEDS: Metoprolol Tartrate 50 MG TAB PO SCH (20:35)
[2018-04-21] MEDS: Acetaminophen 325 MG TAB PO SCH ×4 (00:58→14:17)
[2018-04-21 05:07] LABS: #Basophils 0.1 thou/uL (0.0-0.2); #Eosinphils 0.7 thou/uL (0.0-0.7); #Lymphocytes 2.3 thou/uL (1.20-3.40); #Monocytes 1.2 thou/uL (0.11-0.59); #Neutrophils 6.9 thou/uL (1.40-6.50); %Basophils 0.8 % (0.0-1.0); %Lymphocytes 20.8 % (21.0-51.0); %Monocytes 10.9 % (0.0-10.0); %Neutrophils 61.5 % (42.0-75.0); Hemoglobin 13.2 g/dL (14.0-18.0); Mean Corpuscular HGB CONC 33.2 g/dL (32.0-36.0); Mean Corpuscular Hemoglobin 28.6 pg (27.0-31.0); Mean Corpuscular Volume 86.1 fL (78.0-98.0); Mean Platelet Volume 6.4 fL (7.4-10.4); Platelet Count 294 thou/uL (130-400); RBC Distribution Width 12.6 % (11.5-14.5); Red Blood Cell (RBC) Count 4.61 mill/uL (4.70-6.10); White Blood Cell (WBC) Count 11.2 thou/uL (4.8-10.8)
[2018-04-21 05:56] LABS: Anion Gap 14 mmol/L (10-20); BUN (Urea Nitrogen) 29 mg/dL (8.4-25.7); Calc. Creatinine Clearance 28 mL/min (70-130); Calcium 9.3 mg/dL (7.8-10.44); Carbon Dioxide 24 mmol/L (23-31); Chloride 106 mmol/L (98-107); Estimated GFR-MDRD 46; Glucose 99 mg/dL (83-110); Magnesium 2.6 mg/dL (1.6-2.6); Phosphorus 3.5 mg/dL (2.3-4.7); Potassium 4.2 mmol/L (3.5-5.1); Sodium 140 mmol/L (136-145)
[2018-04-21] MEDS: Metoprolol Tartrate 50 MG TAB PO SCH (09:25)
[2018-04-21] MEDS: Cephalexin 250 MG CAP PO SCH (09:25)
[2018-04-21] MEDS: Polyethylene Glycol 3350 17 GM Packet PO SCH (09:26)
[2018-04-21] MEDS: Famotidine 20 MG TAB PO SCH (09:26)
[2018-04-21] MEDS: Senokot S 8.6-50 MG TAB PO SCH (09:26)
[2018-04-21] MEDS: Gabapentin 100 MG CAP PO SCH (09:26)
[2018-04-21] MEDS: Calcium Carbonate + Vit D 1 TAB PO SCH (09:26)
[2018-04-21] MEDS: Bacitracin Zinc Ointment 30 gm TUBE TOP SCH (09:27)
--- NOTE | 2018-04-21 09:49 | PRG ---
DATE OF SERVICE: 04/21/2018 SUBJECTIVE: The patient is awake, alert, feels fine, had no acute complaints. OBJECTIVE: VITAL SIGNS: Temperature 98.7, pulse 72, respirations 18, O2 saturation 98% on room air, and blood pressure 158/73. HEENT: He has a bruise over the forehead. NECK: C-collar in place. LUNGS: Clear anteriorly. Pacemaker site healing well. CARDIAC: S1 and S2, regular. ABDOMEN: Soft. EXTREMITIES: No edema. LABORATORY DATA: White blood cell count 11.2, hematocrit 39.7, and platelet count 294. Sodium 140, potassium 4.2, chloride 106, CO2 of 24, BUN 29, creatinine 1.5, and glucose 99. Chest x-ray from yesterday showed pacemaker quadrant. No evidence of pneumothorax. ASSESSMENT: 1. Stable pulmonary status. 2. Status post ground level fall with C5-C6 fracture. 3. Atrial fibrillation, which is now resolved. 4. Sick sinus syndrome. PLAN: Continue EzPAP as needed. He is ready for rehab. I would anticipate discharge over to rehab later today. Job ID: [id number]
[2018-04-21 10:55] VITALS: TEMP 98.2
[2018-04-21 13:24] VITALS: BP 109/63
--- NOTE | 2018-04-21 16:18 | CCL ---
CARDIOLOGY PROCEDURE NOTE: PROCEDURE: Pacemaker insertion. INDICATION: Severe sinus bradycardia with 3.4 second pauses, rates in the upper 20s. History of syncope and atria l fibrillation. DETAILS: The patient was brought to the cardiac labor relations officer and the left subclavian area was prepped and draped. The patient has C-collar on and he was draped around this. The patient was given 1 mg Versed IV and 2 5 mg of Fentanyl for moderate conscious sedation throughout the procedure. 1% lidocaine was infiltrat ed. A J-wire was then placed into the left subclavian vein. Pacemaker pocket was manufactured using b renae and sharp dissection with electrocautery for hemostasis. An antibiotic solution-soaked gauze was placed into the subcutaneous pocket. A second J-wire was placed into the left subclavian vein. Using a 7 [place] peel-away sheath, the atrial and ventricular leads were inserted. The ventricular lead wa s screwed into the right ventricular apex and the atrial lead was screwed into the right atrium. Ventricular lead: R-wave 8.4, impedance 664, threshold 0.4 volts. Right atrial lead: P-wave 4.4, impedance 565, threshold 0.5 volts. The tabs on the suture tie-downs were removed and both leads were secured in place with two sutures o f 0 silk. The antibiotic solution-soaked gauze was removed and the pocket was irrigated with copious amounts of antibiotic solution. The leads were attached to the pacemaker generator and this was place d into the pocket and screwed in place with 1 suture of 0 silk. The incision was then closed using 2 layers of running 3-0 Vicryl and 1 layer of running 4-0 Vicryl. Dermabond was placed on the incision. During the procedure, the patient did have some respiratory distress and was given 40 mg Lasix IV. At the conclusion of the procedure, he was given 5 mg of Lopressor IV for heart rates in the upper 90s and blood pressure of 160/90.
--- NOTE | 2018-04-22 04:45 | DIS ---
DATE OF ADMISSION: 04/14/2018 DATE OF DISCHARGE: 04/21/2018 ADMISSION DIAGNOSES: C5-C6 vertebral body fracture, C4-C5 spinous process fracture, sick sinus syndrome. DISCHARGE DIAGNOSES: C5-C6 vertebral body fracture, C4-C5 spinous process fracture, sick sinus syndrome. CONSULTING PHYSICIANS: 1. David Ahumada MD. 2. Lior Terrell MD. PROCEDURES: He received a pacemaker. HOSPITAL COURSE: Mr. Altamirano is an 88-year-old male patient who was status post mechanical fall from standing where he hit his face on the door and had an extension of his neck. On arrival, he received a CT scan of his head, C-spine, and thoracic spine, where they found a C5-C6 vertebral body fracture and a C4-C5 spinous process fracture. He was admitted to the hospital and neurosurgery was consulted. He was seen by Dr. Terrell who recommended conservative management with a [place] J cervical collar. During his hospital admission, it was noted that he was very bradycardic. Several EKGs demonstrated that he had sick sinus syndrome and Dr. David Ahumada was consulted with cardiology who recommended a pacemaker placement. Initially, the patient was having some difficult lying flat due to increased respiratory demand; however, Dr. Ahumada felt that the patient was much more improved on April 20 and he was taken by Dr. Ahumada and received a pacemaker at that time. The patient was also seen by speech therapy because he had difficulty swallowing. He was evaluated by speech who recommended that he have a pureed and nectar-thick diet which he tolerated well. At the time of discharge, his pain was well controlled. His heart rate had improved and he was tolerating his diet without any issues. He had a bowel movement and was urinating without difficulties. DISCHAR[facility]POSITION[facility] facility[facility] DISCHARGE CONDITION: Satisfactory. PHYSICAL EXAMINATION: VITAL SIGNS: Temperature 98.2, pulse 88, respirations 16, he was 98% on room, and blood pressure was 117/71. GENERAL: No acute signs of distress, resting in bed. PULMONARY: No increased work of breathing. Equal chest rise and fall. Normal respiratory rate. Occasional cough with gargling at posterior part of throat with coarse rhonchi which is able to clear with a cough. CARDIOVASCULAR: Regular rate and rhythm. No obvious murmurs, gallops, or rubs. GI: Abdomen is soft, nontender, and nondistended. MUSCULOSKELETAL: Moves all extremities spontaneously. NEUROLOGIC: GCS is 15. No gross focal neurological deficits. DISCHARGE INSTRUCTIONS: He was discharged to a longterm facility with instructions for activity as tolerated, but is to maintain his C-collar at all times until otherwise instructed by the neurosurgeon. He is on a heart-healthy diet, pureed with nectar-thick liquids and extra gravy. He is to receive occupational therapy, physical therapy, and speech therapy, as well as wound care to the location of the pacemaker placement. He is to have supplemental oxygen to maintain an oxygen saturation of 92%. DISCHARGE MEDICATIONS: He was sent to the longterm facility on: 1. Tylenol. 2. Aspirin 81 mg once a day. 3. Bacitracin. 4. Calcium carbonate plus vitamin D. 5. Keflex. 6. Pepcid. 7. Gabapentin 100 mg twice a day. 8. Robitussin. 9. DuoNeb. 10. Metoprolol tartrate. 11. Remeron. 12. MiraLax. 13. Crestor. 14. Sennoside. 15. Tramadol 50 mg every 6 hours as needed. FOLLOWUP APPOINTMENTS: He was set up for followup appointment with Dr. David Ahumada in 2 weeks. He is also to see Dr. Justin Terrell in 2 weeks, 4 weeks, and 2 months with followup x-rays before each one of those appointments. Job ID: [id number]
[2018-04-22] MEDS ORDERED: Aspirin 81 mg Enteric Coated Tablet PO SCH (09:00)
--- NOTE | 2018-04-23 13:15 | EKG ---
Test Reason : Blood Pressure : / mmHG Vent. Rate : 063 BPM Atrial Rate : 063 BPM P-R Int : 256 ms QRS Dur : 078 ms QT Int : 452 ms P-R-T Axes : 078 049 058 degrees QTc Int : 462 ms Sinus rhythm with 1st degree A-V block Otherwise normal ECG Confirmed by EDEL GOMEZ DO ([id number]), managing editor LILIA LU ([id number]) on 04/23/2018 1:15:15 PM Referred By: Confirmed By:EDEL GOMEZ DO
== END 2018-04-21 14:35 | DRG 983 ==
LOC: ERS 18:45 → SURG A 22:36 → IMCU/EMU 04-15 02:21
PROVIDERS: ADMIT Specialist; ATTEND Specialist
PROC: 0JH606Z Insertion of Pacemaker, Dual Chamber into Chest Subcutaneous Tissue and Fascia, Open Approach (ICD-10-PCS; principal; 2018-04-20)
PROC: 02HK3JZ Insertion of Pacemaker Lead into Right Ventricle, Percutaneous Approach (ICD-10-PCS; 2018-04-20)
PROC: 02H63JZ Insertion of Pacemaker Lead into Right Atrium, Percutaneous Approach (ICD-10-PCS; 2018-04-20)
DX: S12.400A Unspecified displaced fracture of fifth cervical vertebra, initial encounter for closed fracture (principal); S12.500A Unspecified displaced fracture of sixth cervical vertebra, initial encounter for closed fracture; S01.412A Laceration without foreign body of left cheek and temporomandibular area, initial encounter; W01.0XXA Fall on same level from slipping, tripping and stumbling without subsequent striking against object, initial encounter; Y92.018 Other place in single-family (private) house as the place of occurrence of the external cause; I25.10 Atherosclerotic heart disease of native coronary artery without angina pectoris; N18.9 Chronic kidney disease, unspecified; I49.5 Sick sinus syndrome; S12.300A Unspecified displaced fracture of fourth cervical vertebra, initial encounter for closed fracture; I48.91 Unspecified atrial fibrillation; I10 Essential (primary) hypertension; Z79.02 Long term (current) use of antithrombotics/antiplatelets; Z79.82 Long term (current) use of aspirin; Z85.46 Personal history of malignant neoplasm of prostate; Z95.5 Presence of coronary angioplasty implant and graft
CPT/HCPCS: 33249; 36415; 70450; 71045; 72125; 72128; 80048; 80053; 80061; 82553; 83735; 83880; 84100; 84484; 85025; 85610; 85730; 90471; 93005; 93010; 93306; 93798; 94640; 96374; 96375; 99152; 99153; C1785; C1898; G0390; J0131; J0360; J0690; J1580; J1644; J1940; J2001; J2250; J2270; J2405; J3010; J3370; J3490; J7620; L0172; L0174

== ENCOUNTER 2018-08-26 13:28 | Observation (INO) | payer MEDICARE ==
[2018-08-26] MEDS ORDERED: Ondansetron PF 4 MG/2 ML Vial IVP PRN (13:30)
[2018-08-26] MEDS ORDERED: Ondansetron ODT 4 MG TAB SL PRN (13:30)
[2018-08-26] MEDS ORDERED: Nitroglycerin 2% Ointment 1 INCH/1 GM Packet ONE (14:06)
[2018-08-26] MEDS ORDERED: Enoxaparin Sodium 30 MG/0.3 ML SYRINGE SC SCH (16:30)
[2018-08-26] MEDS ORDERED: hydrALAZINE 20 MG/ML VIAL SLOW IVP PRN (16:32)
[2018-08-26 16:58] VITALS: BMI 21.8
[2018-08-26 17:22] LABS: Troponin I 0.015 ng/mL (< 0.028)
[2018-08-26] MEDS: Nitroglycerin 0.4 MG TAB (25 Tab Bottle) SL PRN ×2 (17:22→21:40)
[2018-08-26] MEDS ORDERED: HYDROcodone/Acetaminophen 5/325 mg Tablet PO PRN (18:41)
[2018-08-26] MEDS ORDERED: Acetaminophen 650 MG Suppository PR PRN (18:41)
[2018-08-26] MEDS: Sodium Chloride 0.9% 1,000 ML IV SCH (19:38)
[2018-08-26] MEDS: Gabapentin 100 MG CAP PO SCH (19:41)
--- NOTE | 2018-08-26 19:41 | HP ---
CHIEF COMPLAINT: Chest pain. HISTORY OF PRESENT ILLNESS: The patient is a very pleasant 88-year-old male with past medical history significant for recent pacemaker placement with Dr. Ahumada in April 2018; coronary artery disease, status post stent placement approximately 10 years ago; hypertension and hyperlipidemia, who presents to the hospital with a 2-day history of intermittent chest pain. The patient's discomfort initially began yesterday evening. He felt fine throughout the day, used his truck to take some trash to the dump, and had no chest discomfort throughout his activities. However, yesterday evening, he started experiencing some chest discomfort that seemed to radiate down through his stomach. This happened once around 06:00 p.m. and again around 10:00 p.m. His daughter, who is a nurse and works here on [place] [address] at [employer] [employer], went to his residence, and gave him a sublingual nitroglycerin along with aspirin. This did seem to relieve his discomfort. He rested well overnight and got up this morning, to go to breakfast with his . He did go to a restaurant and ate breakfast, but then began experiencing some more chest discomfort while driving in his truck. His and his daughter brought him to the [facility] emergency room for further workup and treatment at that time. As far as associated symptoms with his chest pain, he denies any nausea or acute shortness of breath. He did have some diaphoresis, but this occurred after he took the sublingual nitroglycerin. On arrival to the [facility] ER, his EKG shows a ventricularly paced rhythm. His initial troponin was negative. He is resting comfortably at the time of my interview. A prior cardiac workup has included an echocardiogram performed in April of 2018, which showed normal left ventricular systolic function, mild MR, and sclerotic aortic valve. He has been seen by Dr. Ahumada since his pacemaker implant and an outpatient stress test was scheduled, however, the patient did have some difficulty making this appointment. REVIEW OF SYSTEMS: A 12-point review of systems performed. The patient patient 's family says that he has had some fatigue and has slowed down some since his last hospitalization in April, but otherwise the review of systems is negative. He has had no fevers, chills, or changes in his bowel movements. He denies any recent illnesses. PAST MEDICAL AND SURGICAL HISTORY: 1. Hypertension. 2. Hyperlipidemia. 3. History of bladder cancer. 4. Coronary artery disease, status post stent about 10 years ago. 5. Pacemaker placement, April 14, [address] Ahumada. 6. 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 SOCIAL HISTORY: The patient drinks alcohol on occasion. He denies any drug use or tobacco use. He lives with his in [place]. FAMILY HISTORY: Noncontributory. ALLERGIES: NO KNOWN DRUG ALLERGIES. HOME GO MEDICATIONS: 1. Aspirin 81 mg daily. 2. Keflex 500 mg p.o. t.i.d. 3. Mirtazapine 7.5 mg every other day. 4. Crestor 10 mg p.o. nightly. 5. Famotidine 20 mg daily. 6. Metoprolol tartrate 50 mg p.o. b.i.d. 7. Gabapentin 100 mg p.o. b.i.d. CODE STATUS: The patient is a full code, this was discussed with the patient himself. PHYSICAL EXAMINATION: VITAL SIGNS: Blood pressure 156/74, pulse is 59, O2 saturation is 98% on room air, and respirations are 20. GENERAL: This is an elderly gentleman, resting comfortably in bed, in no acute distress. HEENT: Head is atraumatic and normocephalic. Mucous membranes are moist. Extraocular movements are intact. NECK: Supple. No lymphadenopathy. No JVD. CV: S1 and S2. Regular rate and rhythm. No appreciable murmurs, rubs, or gallops. LUNGS: Regular respiratory rate and pattern. Clear to auscultation bilaterally. ABDOMEN: Positive bowel sounds throughout, mildly tender to palpation in the upper abdomen and ribs. EXTREMITIES: No edema. +2 DP pulses bilaterally. SKIN: Warm and dry. MUSCULOSKELETAL: No joint effusions or swellings. NEUROLOGIC: Cranial nerves 2 through 12 are grossly intact. The patient is nonfocal. LABORATORY DATA: White blood cell count 8.9, hemoglobin 13.6, hematocrit 43.3, and platelets are 199. Sodium 145, potassium 4.1, chloride 109, carbon dioxide 28, anion gap is 12, BUN is 22, creatinine is 1.63. GFR is 40. Calcium is 9.5. Glucose is 114. ASSESSMENT: 1. Chest pain, acute coronary syndrome ruled out, concerning for angina in a patient with known disease. 2. Coronary artery disease, status post stenting at what appears to be a bifurcation lesion according to the patient's daughter. 3. Hypertension. 4. Hyperlipidemia. 5. Patient with cardiac pacemaker. 6. Chronic kidney disease, which appears to be stage 3. Creatinine is mildly elevated above baseline at 1.63. PLAN: Given the patient's known disease and current symptoms, we will go ahead and perform an in-house nuclear stress test to assess for reversible ischemia. We will continue his home medication regimen as well as p.r.n. nitrates. We will provide gentle IV fluid resuscitation and recheck a BMP tomorrow morning. Further recommendations based on findings of noninvasive testing. The care of this patient has been discussed with Dr. Powell, who agrees with plan as outlined above. Job ID: [id number] [facility]ITALElisa
[2018-08-26] MEDS: Metoprolol Tartrate 50 MG TAB PO SCH (19:42)
[2018-08-26] MEDS ORDERED: Mirtazapine 15 MG TAB PO SCH (21:00)
[2018-08-26] MEDS ORDERED: Cephalexin 250 MG CAP PO SCH (21:00)
[2018-08-26] MEDS ORDERED: Rosuvastatin 10 MG TAB PO SCH (21:00)
[2018-08-26] MEDS ORDERED: Mag-Al 1200 mg/1200 mg/30 ML UDCUP PO PRN (21:55)
[2018-08-26] MEDS ORDERED: Melatonin 3 MG TAB PO PRN (21:57)
[2018-08-27 05:58] LABS: #Eosinphils 0.3 thou/uL (0.0-0.7); #Lymphocytes 1.7 thou/uL (1.20-3.40); #Monocytes 0.8 thou/uL (0.11-0.59); #Neutrophils 6.1 thou/uL (1.40-6.50); %Basophils 0.6 % (0.0-1.0); %Lymphocytes 19.3 % (21.0-51.0); %Monocytes 8.9 % (0.0-10.0); %Neutrophils 68.3 % (42.0-75.0); Hemoglobin 12.7 g/dL (14.0-18.0); Mean Corpuscular HGB CONC 33.1 g/dL (32.0-36.0); Mean Corpuscular Hemoglobin 29.5 pg (27.0-31.0); Mean Platelet Volume 7.2 fL (7.4-10.4); Platelet Count 197 thou/uL (130-400); RBC Distribution Width 12.5 % (11.5-14.5); Red Blood Cell (RBC) Count 4.32 mill/uL (4.70-6.10); White Blood Cell (WBC) Count 8.9 thou/uL (4.8-10.8)
[2018-08-27 06:22] LABS: Anion Gap 12 mmol/L (10-20); BUN (Urea Nitrogen) 21 mg/dL (8.4-25.7); Calc. Creatinine Clearance 31 mL/min (70-130); Calcium 8.7 mg/dL (7.8-10.44); Carbon Dioxide 24 mmol/L (23-31); Cardiac Risk 2.8 (Less than 4.5); Chloride 110 mmol/L (98-107); Cholesterol 125 mg/dl (< 200 Desired); Estimated GFR-MDRD 50; Glucose 104 mg/dL (83-110); HDL Cholesterol 45 mg/dL (>60 Neg Risk); LDL Cholesterol, Calculated 63 mg/dL; Potassium 3.7 mmol/L (3.5-5.1); Sodium 142 mmol/L (136-145); Triglycerides 85 mg/dL (Less than 150)
[2018-08-27] MEDS ORDERED: Aspirin 81 mg Enteric Coated Tablet PO SCH (09:00)
[2018-08-27] MEDS: Metoprolol Tartrate 50 MG TAB PO SCH (11:42)
[2018-08-27] MEDS: Gabapentin 100 MG CAP PO SCH (11:42)
[2018-08-27] MEDS ORDERED: ADENOSINE 60 MG/20 ML VIAL ONE (11:56)
--- NOTE | 2018-08-27 14:15 | NM ---
EXAM: Nuclear medicine cardiac perfusion examination with ejection fraction HISTORY: Chest pain; History of coronary artery disease. TECHNIQUE: Rest images: 10.6 mCi technetium 99m sestamibi Stress images: 28.5 mCi of technetium 9M sestamibi; Adenosine COMPARISON: None FINDINGS: Tomographic images: No fixed or reversible perfusion defects. Gated images: Normal wall motion and ejection fraction of 64%. EDV: 54 mL LHR: 0.3 TID: 0.9 IMPRESSION: No evidence of ischemia
[2018-08-27] MEDS ORDERED: Cephalexin 250 MG CAP PO SCH (15:00)
[2018-08-27] MEDS ORDERED: Cephalexin 125 MG/5 ML Oral Suspension PO SCH (15:00)
[2018-08-27 15:53] VITALS: BP 142/69; TEMP 98.5
[2018-08-27] MEDS: Sodium Chloride 0.9% 1,000 ML IV SCH (16:23)
--- NOTE | 2018-08-27 19:15 | DIS ---
DATE OF ADMISSION: 08/26/2018 DATE OF DISCHARGE: 08/27/2018 This is Sherri Dumas PA-C dictating a report for Marisa Powell MD. CHIEF COMPLAINT: On admission, chest pain. DISCHARGE DIAGNOSES: 1. Chest pain, believed to be GI in nature, MPI negative for ischemia, possible esophageal spasm. 2. History of esophageal dysmotility and dysphagia. 3. Coronary artery disease, status post stenting remotely. 4. Hypertension, controlled in this visit. 5. Hyperlipidemia. 6. The patient with cardiac pacemaker. 7. Acute on chronic kidney disease, creatinine back to baseline. BRIEF HOSPITAL COURSE: The patient is a delightful 88-year-old male with past medical history significant for pacemaker placement with Dr. Ahumada in April 2018, coronary artery disease status post stenting, hypertension, and hyperlipidemia, who presented to the hospital with a 2-day history of some intermittent chest pain. The patient's chest pain initially began the evening before his arrival to the ER. The discomfort began in his chest and radiated down to his stomach, and was relieved with nitroglycerin. He felt fine the rest of the night and went to breakfast with his family, and then while driving, began to experience another episode of chest discomfort radiating to the stomach which was again relieved with nitroglycerin. He came to the ER for further workup and treatment. Although he did not have any exertional discomfort, he did undergo MPI, which was negative for reversible ischemia given his known history of coronary artery disease. The patient had one other episode of chest discomfort over the night, which did seem to be relieved with Mylanta. He had some brief tachycardia when his beta-rachael was held for a stress test, however, this resolved once his beta rachael was reinstated. At my interview, the patient states that he feels much improved and is anxious to go home. He has had no further chest discomfort of any kind today. He has ambulated the halls without issue. His daughter is at bedside and all care has been discussed with her. CONDITION ON DISCHARGE: Stable. DISCHARGE DISPOSITION: Home. DISCHARGE MEDICATIONS: The patient will continue his home medication regimen which includes: 1. Aspirin 81 mg daily. 2. Keflex 500 mg p.o. t.i.d. 3. Mirtazapine 7.5 mg p.o. q.2 days. 4. Metoprolol tartrate 50 mg p.o. b.i.d. 5. Crestor 10 mg p.o. at bedtime. 6. Sublingual nitroglycerin 0.4 mg sublingual p.r.n. 7. New medication will be GI cocktail consisting of , viscous lidocaine, and antacid. He can also use [id number] Mylanta if he cannot get this compounded at the pharmacy. DISCHARGE INSTRUCTIONS AND FOLLOWUP: The patient will continue p.r.n. sublingual nitroglycerin and Mylanta as needed. He will follow up with Dr. Juarez of GI for possible consideration of swallowing study/barium swallow versus possible endoscopy if deemed appropriate. He will also follow up with his tube drawing supervisor, Dr. Ahumada, it appears he already does have an appointment scheduled. All questions have been answered to the patient's satisfaction and will be discharged home in good condition. The care of this patient has been discussed with Dr. Powell who agrees with plan as outlined above. Job ID: [id number]
--- NOTE | 2018-08-28 07:41 | PDOC.EVN ---
Event Note - Event Note Event Note: pt seen and examined agree with physical assistance assessment and plan. spoke with pt in length about his complains of chest pain. pt has been having an ongoing dysphasia since his young age. pt always has been chewing his food well before swallowing. He recently has been loosing some weight. pt explained to me that he had a test done which indicated he should blend his food due to his dysphasia problems. I believe this was a barium swallow. I did explain to him that he needs to drink ensure in between meals and he needs to be evaluated by gi. He also states that at times his pills get stuck. Recommended pt to follow up with gi. stress test negative, i advised him to follow up with his cardiology. Also encouraged him to return back to ER if his symptoms worsen.
--- NOTE | 2018-08-30 16:43 | EKG ---
Test Reason : Blood Pressure : / mmHG Vent. Rate : 060 BPM Atrial Rate : 060 BPM P-R Int : 186 ms QRS Dur : 156 ms QT Int : 488 ms P-R-T Axes : 099 -72 088 degrees QTc Int : 488 ms AV dual-paced rhythm Abnormal ECG No previous ECGs available Confirmed by DR. Kelly LOAIZA ([id number]) on 08/30/2018 4:43:30 PM Referred By: FARHEEN FAITH Confirmed By:DR. Kelly LOAIZA
== END 2018-08-27 18:25 | disposition home or self-care (01) ==
LOC: ERS 13:28 → 2SW 14:07
PROVIDERS: ADMIT Internal Medicine; ATTEND Internal Medicine
DX: R07.89 Other chest pain (principal); I12.9 Hypertensive chronic kidney disease with stage 1 through stage 4 chronic kidney disease, or unspecified chronic kidney disease; N18.9 Chronic kidney disease, unspecified; N17.9 Acute kidney failure, unspecified; I25.10 Atherosclerotic heart disease of native coronary artery without angina pectoris; E78.5 Hyperlipidemia, unspecified; B99.9 Unspecified infectious disease; B95.8 Unspecified staphylococcus as the cause of diseases classified elsewhere; Z79.2 Long term (current) use of antibiotics; Z79.82 Long term (current) use of aspirin; Z79.899 Other long term (current) drug therapy; Z95.0 Presence of cardiac pacemaker; Z95.5 Presence of coronary angioplasty implant and graft
CPT/HCPCS: 78452; 80048; 80061; 84484; 85025; 93005; 93017; 94760; 96360; 96361 ×2; 99285; A9500; G0378 ×2; 36415; 93010; J0153; J1650